=== PATIENT | female | born 1990 | race Caucasian/White ===

== ENCOUNTER 2021-08-11 16:25 | Emergency (ER) | payer OTHER ==
[~2021-08-11 16:25] MED LIST: COLACE 100MG C100 MG PO; FEOSOL325 MG PO; FLOMAX0.4 MG PO; IBUPROFEN600 MG PO; NORCO 5-325 TA1 EACH PO
[2021-08-11 17:07] LABS: HEMOGLOBIN 12.7 gm/dl (12.3-15.3); RED BLOOD COUNT 4.04 M/UL (4.00-5.10); WHITE BLOOD COUNT 11.7 K/UL (4.5-11.0)
[2021-08-11 17:31] LABS: BUN/CREATININE RATIO 18 (0-10)
== END 2021-08-11 21:10 | disposition short-term general hospital (02) ==
LOC: ER1 16:25
PROVIDERS: Student in an Organized Health Care Education/Training Program
DX: N13.6 Pyonephrosis (principal); Z87.442 Personal history of urinary calculi; I10 Essential (primary) hypertension; Z20.822 Contact with and (suspected) exposure to COVID-19
CPT/HCPCS: 80053; 81001; 83690; 84703; 85025; 87086; 96374; 96375; 96376; 99285; J0696; J1885; J2270; J2405; Q9967; U0002

== ENCOUNTER → 2021-09-14 | Outpatient (CLI) | payer OTHER | LOC: KOH-I 12:25 | DX: N20.2 Calculus of kidney with calculus of ureter (principal) | CPT/HCPCS: 74018 ==